=== PATIENT | female | born 1960 | race Caucasian/White ===

== ENCOUNTER 2018-03-16 16:40 | Inpatient (IN) | payer MEDICAID ==
[~2018-03-16] VITALS: Ht 167.6 cm; Wt 72.8 kg
[2018-03-16] MEDS ORDERED: FENTANYL CITRATE 100 MCG/2 ML AMPUL IV ONE ×2 (17:15→18:45)
[2018-03-16] MEDS ORDERED: ONDANSETRON IV *ER 4 MG/2 ML VIAL IV ONE (17:15)
[2018-03-16] MEDS ORDERED: LABETALOL HCL 100 MG/20 ML VIAL IV ONE ×3 (17:15→19:30)
[2018-03-16] MEDS ORDERED: IV NORMAL SALINE 500 ML BAG IV ONE (17:15)
[2018-03-16] MEDS ORDERED: ONDANSETRON 4 MG/2 ML VIAL ONE (17:30)
[2018-03-16] MEDS ORDERED: FENTANYL CITRATE 100 MCG/2 ML AMPUL ONE ×2 (17:30→18:53)
[2018-03-16] MEDS ORDERED: LABETALOL HCL 100 MG/20 ML VIAL ONE ×2 (17:30→18:15)
[2018-03-16 18:09] LABS: BASOPHILS % (AUTO) 0.1 % (0.0-2.0); HEMATOCRIT 36.9 % (31.2-41.9); HEMOGLOBIN 11.8 g/dL (10.9-14.3); LYMPHOCYTES # (AUTO) 2.9 K/uL (20.0-40.0); LYMPHOCYTES % (AUTO) 11.9 % (20.5-51.5); MEAN CORPUSCULAR HEMOGLOBIN 25.7 uug (24.7-32.8); MEAN CORPUSCULAR HGB CONC 32 g/dL (32.3-35.6); MEAN CORPUSCULAR VOLUME 80.6 fL (75.5-95.3); MONOCYTES # (AUTO) 1.2 K/uL (2.0-10.0); NEUTROPHILS # (AUTO) 20.1 K/uL (1.8-8.9); PLATELET COUNT (AUTO) 563 K/uL (179-408); RED BLOOD CELL COUNT(AUTO) 4.58 MIL/uL (3.63-4.92); WHITE BLOOD COUNT (AUTO) 24.2 K/uL (3.8-11.8)
[2018-03-16 18:11] LABS: CREATININE 1.2 mg/dL (0.6-1.3); POTASSIUM 3.2 mmol/L (3.5-5.1)
[2018-03-16] MEDS ORDERED: CELE100C PO (18:13)
[2018-03-16] MEDS ORDERED: CLON1TAB PO (18:13)
[2018-03-16] MEDS ORDERED: DIPH25CA83 PO (18:13)
[2018-03-16] MEDS ORDERED: DILT-32 PO (18:13)
[2018-03-16] MEDS ORDERED: METH25VI11 INJ (18:13)
[2018-03-16] MEDS ORDERED: PANT40TA2 PO (18:13)
[2018-03-16] MEDS ORDERED: CHOL10005 PO (18:13)
[2018-03-16] MEDS ORDERED: CHLO25TA2 PO (18:13)
[2018-03-16] MEDS ORDERED: POTA10TA15 PO (18:13)
[2018-03-16] MEDS ORDERED: DOXA4TAB3 PO (18:13)
[2018-03-16] MEDS ORDERED: TIZA4TAB4 PO (18:13)
[2018-03-16 18:24] LABS: BILIRUBIN,DIRECT 0.1 mg/dL (0.0-0.2); BILIRUBIN,TOTAL 0.3 mg/dL (0.2-1.0); TOTAL PROTEIN, SERUM 7.8 g/dL (6.4-8.2)
[2018-03-16] MEDS ORDERED: FUROSEMIDE 20 MG/2 ML VIAL IV ONE (18:30)
[2018-03-16] MEDS ORDERED: CEFTRIAXONE 2 G in IV DEXTROSE 5% 100 ML IV ONE (18:30)
[2018-03-16] MEDS ORDERED: CEFTRIAXONE 1 G VIAL ONE (18:40)
[2018-03-16] MEDS ORDERED: FUROSEMIDE 40 MG/4 ML VIAL ONE (18:40)
[2018-03-16] MEDS ORDERED: ACETAMINOPHEN 325 MG TABLET PO PRN (19:15)
[2018-03-16] MEDS ORDERED: MAGNESIUM HYDROXIDE 30 ML LIQUID UDC PO PRN (19:15)
[2018-03-16] MEDS ORDERED: Z GUARD REMEDY PASTE 57 GM TUBE TOP PRN (19:15)
[2018-03-16] MEDS ORDERED: FENTANYL CITRATE 100 MCG/2 ML AMPUL IV PRN (19:45)
[2018-03-16 20:50] VITALS: BP 157/84
[2018-03-16] MEDS: POTASSIUM CHLORIDE 50 ML IV SCH ×2 (21:41→22:53)
[2018-03-16] MEDS: IV NS 1000 ML 1,000 ML IV PRN (21:41)
[2018-03-16] MEDS ORDERED: METHOTREXATE SODIUM 25 MG INJ SCH (22:00)
[2018-03-16 22:06] LABS: *BILIRUBIN,URIN NEGATIVE (NEGATIVE); *BLOOD, URINE NEGATIVE (NEGATIVE); *CLARITY,URINE CLEAR (CLEAR); *COLOR,URINE LIGHT YELLOW (YELLOW); *KETONES,URINE NEGATIVE (NEGATIVE); *PROTEIN,URINE NEGATIVE (NEGATIVE); *UROBILINOGEN,URINE 0.2 E.U./dl (NORMAL); LEUKOCYTE ESTERASE ,URINE 2+ (NEGATIVE); NITRITE, URINE NEGATIVE (NEGATIVE); UGLUCOSE NEGATIVE (NEGATIVE)
[2018-03-16 22:13] LABS: MUCUS,URINE FEW /LPF (0-FEW); RBC,URINE 0-3 /HPF (0-3); SQUAMOUS EPITHELIAL CELL,UR MODERATE /HPF (NONE SEEN); TRANSITIONAL EPI CELLS,URINE FEW /LPF (NONE SEEN)
[2018-03-16] MEDS: diphenhydrAMINE 50 MG/1 ML VIAL IV PRN (22:21)
[2018-03-16 23:38] VITALS: BP 166/76
[2018-03-17] VITALS (11 sets, daily range): BP systolic 90–209; BP diastolic 44–93
[2018-03-17] MEDS: POTASSIUM CHLORIDE 50 ML IV SCH ×2 (00:37→01:53)
[2018-03-17] MEDS: FENTANYL CITRATE 100 MCG/2 ML AMPUL IV PRN ×3 (00:45→14:41)
[2018-03-17] MEDS ORDERED: NITROGLYCERIN 0.4 MG/TAB BOTTLE SL PRN (02:00)
[2018-03-17] MEDS ORDERED: hydrALAZINE HCL 50 MG TABLET PO SCH ×2 (04:30→14:00)
[2018-03-17] MEDS: diphenhydrAMINE 50 MG/1 ML VIAL IV PRN ×3 (04:40→20:55)
[2018-03-17] MEDS: LORAZEPAM 2 MG/1 ML VIAL IV PRN ×2 (05:59→22:15)
[2018-03-17 06:07] LABS: BASOPHILS % (AUTO) 0.1 % (0.0-2.0); EOSINOPHILS % (AUTO) 0.1 % (0.0-7.0); HEMATOCRIT 36.6 % (31.2-41.9); HEMOGLOBIN 11.6 g/dL (10.9-14.3); LYMPHOCYTES # (AUTO) 3.8 K/uL (20.0-40.0); LYMPHOCYTES % (AUTO) 21.1 % (20.5-51.5); MEAN CORPUSCULAR HEMOGLOBIN 25.7 uug (24.7-32.8); MEAN CORPUSCULAR HGB CONC 32 g/dL (32.3-35.6); MEAN CORPUSCULAR VOLUME 81.2 fL (75.5-95.3); MONOCYTES # (AUTO) 1.1 K/uL (2.0-10.0); MONOCYTES % (AUTO) 5.9 % (0.0-11.0); NEUTROPHILS # (AUTO) 13.1 K/uL (1.8-8.9); NEUTROPHILS % (AUTO) 72.8 % (38.5-71.5); PLATELET COUNT (AUTO) 509 K/uL (179-408); RED BLOOD CELL COUNT(AUTO) 4.51 MIL/uL (3.63-4.92); WHITE BLOOD COUNT (AUTO) 18.1 K/uL (3.8-11.8)
[2018-03-17 06:41] LABS: CREATININE 1.2 mg/dL (0.6-1.3); MAGNESIUM 2.3 mg/dL (1.8-2.4); PHOSPHOROUS 4.8 mg/dL (2.5-4.9); POTASSIUM 3.8 mmol/L (3.5-5.1)
[2018-03-17 07:48] LABS: THYROID STIMULATING HORMONE 1.005 mIU/mL (0.358-3.740)
[2018-03-17] MEDS: PANTOPRAZOLE SODIUM 40 MG VIAL IV SCH (08:39)
[2018-03-17] MEDS: CELECOXIB 100 MG CAPSULE PO SCH ×2 (08:52→17:03)
[2018-03-17] MEDS: DOXAZOSIN 2 MG TABLET PO SCH ×2 (08:52→21:00)
[2018-03-17] MEDS: TIZANIDINE HCL 4 MG TABLET PO SCH ×3 (08:55→17:04)
[2018-03-17] MEDS ORDERED: LABETALOL HCL 100 MG TABLET PO SCH (09:00)
[2018-03-17] MEDS ORDERED: CHLORTHALIDONE 25 MG TABLET PO SCH (09:00)
[2018-03-17] MEDS ORDERED: VERAPAMIL 80 MG TABLET PO SCH (09:00)
[2018-03-17] MEDS ORDERED: DILTIAZEM HCL CD 120 MG CAP.SR.24H PO SCH (09:00)
[2018-03-17] MEDS: hydrALAZINE HCL 25 MG TABLET PO SCH ×2 (13:23→21:53)
[2018-03-17] MEDS: CEFTRIAXONE 1 G in IV DEXTROSE 5% 50 ML IV SCH (16:53)
[2018-03-17] MEDS: IV NS 1000 ML 1,000 ML IV PRN (21:58)
[2018-03-18] VITALS (7 sets, daily range): BP systolic 113–151; BP diastolic 50–151
[2018-03-18] MEDS: FENTANYL CITRATE 100 MCG/2 ML AMPUL IV PRN ×4 (01:29→21:02)
[2018-03-18] MEDS: diphenhydrAMINE 50 MG/1 ML VIAL IV PRN ×3 (03:46→22:21)
[2018-03-18] MEDS: LORAZEPAM 2 MG/1 ML VIAL IV PRN (05:49)
[2018-03-18] MEDS: hydrALAZINE HCL 25 MG TABLET PO SCH (06:14)
[2018-03-18] MEDS: ONDANSETRON 4 MG/2 ML VIAL IV PRN ×2 (07:01→21:02)
[2018-03-18 07:09] LABS: BASOPHILS % (AUTO) 0.3 % (0.0-2.0); EOSINOPHILS # (AUTO) 0.2 K/uL (0.0-0.7); EOSINOPHILS % (AUTO) 2.2 % (0.0-7.0); HEMOGLOBIN 10.7 g/dL (10.9-14.3); LYMPHOCYTES # (AUTO) 4.1 K/uL (20.0-40.0); LYMPHOCYTES % (AUTO) 35.9 % (20.5-51.5); MEAN CORPUSCULAR HEMOGLOBIN 26.4 uug (24.7-32.8); MEAN CORPUSCULAR HGB CONC 32 g/dL (32.3-35.6); MEAN CORPUSCULAR VOLUME 81.4 fL (75.5-95.3); MONOCYTES # (AUTO) 0.9 K/uL (2.0-10.0); MONOCYTES % (AUTO) 7.6 % (0.0-11.0); NEUTROPHILS # (AUTO) 6.2 K/uL (1.8-8.9); PLATELET COUNT (AUTO) 433 K/uL (179-408); RED BLOOD CELL COUNT(AUTO) 4.05 MIL/uL (3.63-4.92)
[2018-03-18 07:19] LABS: WHITE BLOOD COUNT (AUTO) 11.4 K/uL (3.8-11.8)
[2018-03-18 07:24] LABS: CREATININE 1.1 mg/dL (0.6-1.3); POTASSIUM 4.2 mmol/L (3.5-5.1)
[2018-03-18] MEDS: DOXAZOSIN 2 MG TABLET PO SCH ×2 (07:47→21:01)
[2018-03-18] MEDS: PANTOPRAZOLE SODIUM 40 MG VIAL IV SCH (08:02)
[2018-03-18] MEDS: TIZANIDINE HCL 4 MG TABLET PO SCH ×3 (08:03→17:09)
[2018-03-18] MEDS: CELECOXIB 100 MG CAPSULE PO SCH ×2 (08:03→17:09)
[2018-03-18] MEDS: IV NS 1000 ML 1,000 ML IV PRN (11:51)
[2018-03-18] MEDS ORDERED: hydrALAZINE HCL 25 MG TABLET PO SCH (14:00)
[2018-03-18] MEDS: CEFTRIAXONE 1 G in IV DEXTROSE 5% 50 ML IV SCH (17:10)
[2018-03-19] VITALS: BP 121/50
[2018-03-19] MEDS: LORAZEPAM 2 MG/1 ML VIAL IV PRN ×3 (00:56→15:20)
[2018-03-19] MEDS: IV NS 1000 ML 1,000 ML IV PRN ×2 (01:55→17:15)
[2018-03-19] MEDS: FENTANYL CITRATE 100 MCG/2 ML AMPUL IV PRN ×2 (03:21→09:45)
[2018-03-19 05:00] VITALS: BP 162/81
[2018-03-19] MEDS: hydrALAZINE HCL 25 MG TABLET PO PRN ×2 (05:25→14:17)
[2018-03-19] MEDS: diphenhydrAMINE 50 MG/1 ML VIAL IV PRN ×3 (05:25→20:04)
[2018-03-19] MEDS: PANTOPRAZOLE SODIUM 40 MG TABLET.DR PO SCH (06:16)
[2018-03-19] MEDS: DOXAZOSIN 2 MG TABLET PO SCH ×2 (08:23→20:01)
[2018-03-19] MEDS: TIZANIDINE HCL 4 MG TABLET PO SCH ×3 (08:23→17:14)
[2018-03-19] MEDS: CELECOXIB 100 MG CAPSULE PO SCH ×2 (08:24→17:14)
[2018-03-19 09:39] VITALS: BP 140/71
[2018-03-19 12:39] VITALS: BP 158/77
[2018-03-19] MEDS: HYDROMORPHONE 2 MG/1 ML DISP.SYRIN IV PRN ×2 (15:21→19:58)
[2018-03-19 15:56] VITALS: BP 124/68
[2018-03-19] MEDS: CEFTRIAXONE 1 G in IV DEXTROSE 5% 50 ML IV SCH (17:14)
[2018-03-19 20:02] VITALS: BP 166/81
[2018-03-20] VITALS (7 sets, daily range): BP systolic 104–168; BP diastolic 49–81
[2018-03-20] MEDS: HYDROMORPHONE 2 MG/1 ML DISP.SYRIN IV PRN ×3 (01:04→11:30)
[2018-03-20] MEDS: diphenhydrAMINE 50 MG/1 ML VIAL IV PRN ×3 (02:03→14:42)
[2018-03-20] MEDS: hydrALAZINE HCL 25 MG TABLET PO PRN ×2 (04:52→14:42)
[2018-03-20] MEDS: IV NS 1000 ML 1,000 ML IV PRN (06:13)
[2018-03-20] MEDS: PANTOPRAZOLE SODIUM 40 MG TABLET.DR PO SCH (06:14)
[2018-03-20] MEDS: DOXAZOSIN 2 MG TABLET PO SCH (06:50)
[2018-03-20] MEDS: CELECOXIB 100 MG CAPSULE PO SCH ×2 (08:12→16:39)
[2018-03-20] MEDS: TIZANIDINE HCL 4 MG TABLET PO SCH ×3 (08:12→16:39)
[2018-03-20] MEDS: LORAZEPAM 2 MG/1 ML VIAL IV PRN (09:18)
[2018-03-20] MEDS ORDERED: CEPH-570 PO (15:45)
== END 2018-03-20 17:45 | disposition home or self-care (01) | DRG 199 ==
LOC: ER 16:50 → UNDOADMIN 20:21 → TELE 20:21 → TELE-TD 03-17 09:18 → CCU 03-17 10:04 → TELE-TD 03-18 07:24 → TELE 03-19 16:40
PROVIDERS: ADMIT Hospitalist; ATTEND Hospitalist
DX: I16.0 Hypertensive urgency (principal); I21.A1 Myocardial infarction type 2; I50.33 Acute on chronic diastolic (congestive) heart failure; I11.0 Hypertensive heart disease with heart failure; G43.909 Migraine, unspecified, not intractable, without status migrainosus; N39.0 Urinary tract infection, site not specified; E87.6 Hypokalemia; E78.5 Hyperlipidemia, unspecified; Z82.49 Family history of ischemic heart disease and other diseases of the circulatory system; Z87.440 Personal history of urinary (tract) infections; D49.7 Neoplasm of unspecified behavior of endocrine glands and other parts of nervous system; E87.1 Hypo-osmolality and hyponatremia
CPT/HCPCS: 36415; 70030-TC; 70551; 71045; 83735; 84100; 84443; 85025; 85730; 87040; 87086; 93005; 93307; 93880; C9113; J0696; J1170; J1200; J1940; J2060; J2405; J3010; J3480; J3490; J7030; J7060

== ENCOUNTER 2018-11-26 19:32 | Inpatient (IN) | payer MEDICAID ==
[~2018-11-26] VITALS: Ht 170.2 cm; Wt 84.8 kg
[~2018-11-26 19:32] MED LIST: CELE100C PO; CEPH-570 PO; CHLO25TA2 PO; CHOL10005 PO; CLON1TAB PO; DILT-32 PO; DOXA4TAB3 PO; METH25VI11 INJ; PANT40TA2 PO; POTA10TA15 PO; TIZA4TAB4 PO
[2018-11-26] MEDS ORDERED: ONDANSETRON IV *ER 4 MG/2 ML VIAL IV ONE (19:45)
[2018-11-26] MEDS ORDERED: MORPHINE SULFATE 4 MG/1 ML DISP.SYRIN IV ONE ×2 (19:45→22:15)
[2018-11-26] MEDS ORDERED: NITROGLYCERIN OINT 1 GM PACKET TP ONE ×2 (19:45→19:53)
[2018-11-26] MEDS ORDERED: NITROGLYCERIN 0.4 MG/TAB BOTTLE SL ONE ×2 (19:45→19:53)
[2018-11-26] MEDS ORDERED: ASPIRIN 81 MG TAB.CHEW PO ONE (19:45)
[2018-11-26] MEDS ORDERED: ASPIRIN 81 MG TAB.CHEW ONE (19:52)
[2018-11-26] MEDS ORDERED: ONDANSETRON 4 MG/2 ML VIAL ONE (19:53)
[2018-11-26] MEDS ORDERED: MORPHINE SULFATE 4 MG/1 ML DISP.SYRIN ONE ×2 (19:53→22:17)
[2018-11-26 20:01] LABS: BASOPHILS # (AUTO) 0.1 K/uL (0.0-8.0); BASOPHILS % (AUTO) 0.8 % (0.0-2.0); EOSINOPHILS # (AUTO) 0.2 K/uL (0.0-0.7); EOSINOPHILS % (AUTO) 2.2 % (0.0-7.0); HEMATOCRIT 34.5 % (31.2-41.9); HEMOGLOBIN 10.7 g/dL (10.9-14.3); LYMPHOCYTES % (AUTO) 34.7 % (20.5-51.5); MEAN CORPUSCULAR HEMOGLOBIN 23.4 uug (24.7-32.8); MEAN CORPUSCULAR HGB CONC 31 g/dL (32.3-35.6); MEAN CORPUSCULAR VOLUME 75.3 fL (75.5-95.3); MONOCYTES # (AUTO) 0.6 K/uL (2.0-10.0); NEUTROPHILS # (AUTO) 4.8 K/uL (1.8-8.9); NEUTROPHILS % (AUTO) 55.3 % (38.5-71.5); PLATELET COUNT (AUTO) 403 K/uL (179-408); RED BLOOD CELL COUNT(AUTO) 4.58 MIL/uL (3.63-4.92); WHITE BLOOD COUNT (AUTO) 8.6 K/uL (3.8-11.8)
[2018-11-26] MEDS ORDERED: HYDR50CA PO (20:02)
[2018-11-26] MEDS ORDERED: metoprolol PO (20:02)
[2018-11-26] MEDS ORDERED: AMIT50TA3 PO (20:02)
[2018-11-26 20:11] LABS: POTASSIUM 3.8 mmol/L (3.5-5.1)
[2018-11-26 20:23] LABS: BILIRUBIN,DIRECT 0.1 mg/dL (0.0-0.2); BILIRUBIN,TOTAL 0.3 mg/dL (0.2-1.0); TOTAL PROTEIN, SERUM 8.5 g/dL (6.4-8.2)
[2018-11-26] MEDS ORDERED: LABETALOL HCL 100 MG/20 ML VIAL ONE (20:41)
[2018-11-26] MEDS ORDERED: LABETALOL HCL 100 MG/20 ML VIAL IV ONE (20:45)
[2018-11-26] MEDS ORDERED: IV NORMAL SALINE 500 ML BAG IV ONE (20:45)
[2018-11-26 22:50] VITALS: BP 159/88
[2018-11-26] MEDS ORDERED: Z GUARD REMEDY PASTE 57 GM TUBE TOP PRN (23:30)
[2018-11-26] MEDS ORDERED: ACETAMINOPHEN 325 MG TABLET PO PRN (23:30)
[2018-11-26] MEDS ORDERED: MAGNESIUM HYDROXIDE 30 ML LIQUID UDC PO PRN (23:30)
[2018-11-26] MEDS ORDERED: HYDROXYZINE PAMOATE 25 MG CAPSULE PO PRN (23:30)
[2018-11-26] MEDS ORDERED: NITROGLYCERIN 0.4 MG/TAB BOTTLE SL PRN (23:30)
[2018-11-26] MEDS ORDERED: TIZANIDINE HCL 4 MG TABLET PO PRN (23:30)
[2018-11-26] MEDS ORDERED: HYDROCODONE/APAP 5-325MG TABLET PO PRN (23:30)
[2018-11-26] MEDS ORDERED: ONDANSETRON 4 MG/2 ML VIAL IV PRN (23:30)
[2018-11-26] MEDS ORDERED: CLONAZEPAM 1 MG TABLET PO PRN (23:30)
[2018-11-26] MEDS: METOPROLOL TARTRATE 25 MG TABLET PO SCH (23:50)
[2018-11-26] MEDS: MORPHINE SULFATE 2 MG/1 ML DISP.SYRIN IV PRN (23:59)
[2018-11-27] VITALS: BP 159/88
[2018-11-27 04:00] VITALS: BP 111/64
[2018-11-27 05:11] LABS: BASOPHILS # (AUTO) 0.1 K/uL (0.0-8.0); BASOPHILS % (AUTO) 0.7 % (0.0-2.0); EOSINOPHILS # (AUTO) 0.2 K/uL (0.0-0.7); EOSINOPHILS % (AUTO) 2.1 % (0.0-7.0); HEMATOCRIT 30.1 % (31.2-41.9); HEMOGLOBIN 9.5 g/dL (10.9-14.3); LYMPHOCYTES # (AUTO) 3.1 K/uL (20.0-40.0); MEAN CORPUSCULAR HEMOGLOBIN 23.8 uug (24.7-32.8); MEAN CORPUSCULAR HGB CONC 32 g/dL (32.3-35.6); MEAN CORPUSCULAR VOLUME 75.6 fL (75.5-95.3); MONOCYTES # (AUTO) 0.5 K/uL (2.0-10.0); MONOCYTES % (AUTO) 5.6 % (0.0-11.0); NEUTROPHILS # (AUTO) 4.6 K/uL (1.8-8.9); NEUTROPHILS % (AUTO) 54.6 % (38.5-71.5); PLATELET COUNT (AUTO) 395 K/uL (179-408); RED BLOOD CELL COUNT(AUTO) 3.99 MIL/uL (3.63-4.92); WHITE BLOOD COUNT (AUTO) 8.5 K/uL (3.8-11.8)
[2018-11-27 05:45] LABS: CREATININE 1.1 mg/dL (0.6-1.3); MAGNESIUM 2.2 mg/dL (1.8-2.4); PHOSPHOROUS 4.9 mg/dL (2.5-4.9); POTASSIUM 3.5 mmol/L (3.5-5.1)
[2018-11-27] MEDS: MORPHINE SULFATE 2 MG/1 ML DISP.SYRIN IV PRN ×4 (06:18→20:56)
[2018-11-27] MEDS: AMITRIPTYLINE HCL 50 MG TABLET PO SCH ×2 (08:30→16:48)
[2018-11-27] MEDS: ASPIRIN 81 MG TAB.CHEW PO SCH (08:30)
[2018-11-27] MEDS: METOPROLOL TARTRATE 25 MG TABLET PO SCH ×2 (08:34→20:54)
[2018-11-27 11:28] VITALS: BP 119/64
[2018-11-27 15:21] VITALS: BP 138/61
[2018-11-27 20:00] VITALS: BP 155/77
[2018-11-27] MEDS ORDERED: ATORVASTATIN 20 MG TABLET PO SCH (21:00)
[2018-11-28] MEDS: MORPHINE SULFATE 2 MG/1 ML DISP.SYRIN IV PRN ×2 (01:50→05:28)
[2018-11-28 05:27] VITALS: BP 107/51
[2018-11-28 05:58] LABS: BASOPHILS # (AUTO) 0.1 K/uL (0.0-8.0); BASOPHILS % (AUTO) 0.8 % (0.0-2.0); EOSINOPHILS # (AUTO) 0.3 K/uL (0.0-0.7); EOSINOPHILS % (AUTO) 3.4 % (0.0-7.0); HEMATOCRIT 32.2 % (31.2-41.9); HEMOGLOBIN 10.3 g/dL (10.9-14.3); LYMPHOCYTES # (AUTO) 3.6 K/uL (20.0-40.0); LYMPHOCYTES % (AUTO) 43.4 % (20.5-51.5); MEAN CORPUSCULAR HEMOGLOBIN 24.5 uug (24.7-32.8); MEAN CORPUSCULAR HGB CONC 32 g/dL (32.3-35.6); MEAN CORPUSCULAR VOLUME 76.5 fL (75.5-95.3); MONOCYTES # (AUTO) 0.5 K/uL (2.0-10.0); NEUTROPHILS # (AUTO) 3.9 K/uL (1.8-8.9); NEUTROPHILS % (AUTO) 46.4 % (38.5-71.5); PLATELET COUNT (AUTO) 425 K/uL (179-408); RED BLOOD CELL COUNT(AUTO) 4.21 MIL/uL (3.63-4.92); WHITE BLOOD COUNT (AUTO) 8.3 K/uL (3.8-11.8)
[2018-11-28 06:03] LABS: BILIRUBIN,TOTAL 0.3 mg/dL (0.2-1.0); CREATININE 1.1 mg/dL (0.6-1.3); MAGNESIUM 2.3 mg/dL (1.8-2.4); PHOSPHOROUS 4.6 mg/dL (2.5-4.9); POTASSIUM 3.9 mmol/L (3.5-5.1); TOTAL PROTEIN, SERUM 7.9 g/dL (6.4-8.2)
[2018-11-28 08:50] VITALS: BP 133/70
[2018-11-28] MEDS: AMITRIPTYLINE HCL 50 MG TABLET PO SCH (08:51)
[2018-11-28] MEDS: METOPROLOL TARTRATE 25 MG TABLET PO SCH (08:52)
[2018-11-28] MEDS: ASPIRIN 81 MG TAB.CHEW PO SCH (08:52)
[2018-11-28 09:32] LABS: THYROID STIMULATING HORMONE 1.188 mIU/mL (0.358-3.740)
[2018-11-28 11:03] VITALS: BP 108/39
[2018-11-28] MEDS ORDERED: ATOR20TA PO (11:27)
[2018-11-28] MEDS ORDERED: ASPI81TA31 PO (11:27)
[2018-11-28] MEDS ORDERED: FAMO-132 PO (12:09)
[2018-11-28 12:19] LABS: IRON, SERUM 33 ug/dL (50-175)
[2018-11-28 13:44] VITALS: BP 109/56
== END 2018-11-28 13:50 | disposition home or self-care (01) | DRG 203 ==
LOC: ER 19:32 → TELE3 22:38 → MEDSURG3 11-27 13:50
PROVIDERS: ADMIT Internal Medicine; ATTEND Internal Medicine
DX: M94.0 Chondrocostal junction syndrome [Tietze] (principal); L40.50 Arthropathic psoriasis, unspecified; D50.9 Iron deficiency anemia, unspecified; E66.9 Obesity, unspecified; I10 Essential (primary) hypertension; Z82.49 Family history of ischemic heart disease and other diseases of the circulatory system; E78.5 Hyperlipidemia, unspecified; F41.9 Anxiety disorder, unspecified; I25.2 Old myocardial infarction; F32.9 Major depressive disorder, single episode, unspecified; E26.9 Hyperaldosteronism, unspecified; G43.909 Migraine, unspecified, not intractable, without status migrainosus; Z68.29 Body mass index [BMI] 29.0-29.9, adult; I20.0 Unstable angina; M45.9 Ankylosing spondylitis of unspecified sites in spine
CPT/HCPCS: 36415; 70030-TC; 71045; 83550; 83735; 84100; 84443; 85025; 85730; 93005; 93307; A4663; G0378; J2270; J2405; J3490; J7040

== ENCOUNTER 2018-12-02 22:25 | Inpatient (IN) | payer MEDICAID ==
[~2018-12-02] VITALS: Ht 170.2 cm; Wt 85.3 kg
[~2018-12-02 22:25] MED LIST changes: +AMIT50TA3 PO; +ASPI81TA31 PO; +ATOR20TA PO; -CELE100C PO; -CEPH-570 PO; -CHLO25TA2 PO; -CHOL10005 PO; -DILT-32 PO; -DOXA4TAB3 PO; +FAMO-132 PO; +HYDR50CA PO; -METH25VI11 INJ; -PANT40TA2 PO; -POTA10TA15 PO; +metoprolol PO
[2018-12-02] MEDS ORDERED: DILTIAZEM HCL 25 MG IV IV ONE (22:45)
[2018-12-02] MEDS ORDERED: IV NORMAL SALINE 500 ML BAG IV ONE (22:45)
[2018-12-02] MEDS ORDERED: DILTIAZEM HCL 25 MG IV ONE ×2 (22:53→23:21)
[2018-12-02 23:03] LABS: BASOPHILS # (AUTO) 0.1 K/uL (0.0-8.0); BASOPHILS % (AUTO) 0.7 % (0.0-2.0); EOSINOPHILS # (AUTO) 0.2 K/uL (0.0-0.7); EOSINOPHILS % (AUTO) 1.6 % (0.0-7.0); LYMPHOCYTES # (AUTO) 3.3 K/uL (20.0-40.0); MEAN CORPUSCULAR HEMOGLOBIN 23.8 uug (24.7-32.8); MEAN CORPUSCULAR HGB CONC 32 g/dL (32.3-35.6); MEAN CORPUSCULAR VOLUME 75.4 fL (75.5-95.3); MONOCYTES # (AUTO) 0.7 K/uL (2.0-10.0); MONOCYTES % (AUTO) 7.1 % (0.0-11.0); NEUTROPHILS % (AUTO) 54.6 % (38.5-71.5); PLATELET COUNT (AUTO) 416 K/uL (179-408); RED BLOOD CELL COUNT(AUTO) 4.64 MIL/uL (3.63-4.92); WHITE BLOOD COUNT (AUTO) 9.2 K/uL (3.8-11.8)
[2018-12-02 23:11] LABS: CREATININE 1.2 mg/dL (0.6-1.3); POTASSIUM 3.8 mmol/L (3.5-5.1)
[2018-12-02] MEDS ORDERED: MORPHINE SULFATE 2 MG/1 ML DISP.SYRIN ONE (23:14)
[2018-12-02] MEDS ORDERED: DILTIAZEM HCL IV 125 MG in IV DEXTROSE 5% 100 ML IV ONE (23:15)
[2018-12-02] MEDS ORDERED: MORPHINE SULFATE 2 MG/1 ML DISP.SYRIN IV ONE (23:15)
[2018-12-02] MEDS ORDERED: DILTIAZEM HCL 50 MG IV ONE (23:21)
[2018-12-02 23:23] LABS: BILIRUBIN,DIRECT 0.1 mg/dL (0.0-0.2); BILIRUBIN,TOTAL 0.3 mg/dL (0.2-1.0); TOTAL PROTEIN, SERUM 8.7 g/dL (6.4-8.2)
[2018-12-02] MEDS ORDERED: ONDANSETRON 4 MG/2 ML VIAL ONE (23:28)
[2018-12-02] MEDS ORDERED: ONDANSETRON IV *ER 4 MG/2 ML VIAL IV ONE (23:30)
[2018-12-03] VITALS (21 sets, daily range): BP systolic 121–175; BP diastolic 60–101
[2018-12-03] MEDS ORDERED: AMIODARONE HCL 150 MG/3 ML VIAL IV ONE ×2 (00:11→00:23)
[2018-12-03] MEDS ORDERED: AMIODARONE HCL IV 150 MG in IV DEXTROSE 5% 100 ML IV ONE (00:15)
[2018-12-03] MEDS ORDERED: AMIODARONE HCL IV 900 MG in IV DEXTROSE 5% 482 ML IV PRN ×2 (00:15→01:15)
[2018-12-03] MEDS ORDERED: MORPHINE SULFATE 2 MG/1 ML DISP.SYRIN ONE (00:22)
[2018-12-03] MEDS ORDERED: MORPHINE SULFATE 2 MG/1 ML DISP.SYRIN IV ONE (00:30)
[2018-12-03] MEDS ORDERED: CLONAZEPAM 1 MG TABLET PO PRN (01:00)
[2018-12-03] MEDS ORDERED: ONDANSETRON 4 MG/2 ML VIAL IV PRN (01:15)
[2018-12-03] MEDS ORDERED: ACETAMINOPHEN 325 MG TABLET PO PRN (01:15)
[2018-12-03] MEDS ORDERED: Z GUARD REMEDY PASTE 57 GM TUBE TOP PRN (01:15)
[2018-12-03] MEDS ORDERED: HYDROCODONE/APAP 5-325MG TABLET PO PRN (01:15)
[2018-12-03] MEDS ORDERED: MAGNESIUM HYDROXIDE 30 ML LIQUID UDC PO PRN (01:15)
[2018-12-03] MEDS: MORPHINE SULFATE 2 MG/1 ML DISP.SYRIN IV PRN ×5 (01:44→20:34)
[2018-12-03] MEDS: IV 1/2NS 1000 ML 1,000 ML IV PRN ×2 (01:56→14:28)
[2018-12-03] MEDS: ZOLPIDEM 5 MG TABLET PO PRN (02:12)
[2018-12-03] MEDS: FAMOTIDINE 20 MG TABLET PO SCH (08:40)
[2018-12-03] MEDS: ASPIRIN 81 MG TAB.CHEW PO SCH (08:53)
[2018-12-03] MEDS: AMITRIPTYLINE HCL 50 MG TABLET PO SCH ×2 (08:54→17:18)
[2018-12-03] MEDS: hydrALAZINE HCL 20 MG/1 ML VIAL IV PRN (08:58)
[2018-12-03] MEDS ORDERED: METOPROLOL TARTRATE 50 MG TABLET PO ONE (09:00)
[2018-12-03] MEDS: TIZANIDINE HCL 4 MG TABLET PO PRN (09:03)
[2018-12-03] MEDS ORDERED: ONDANSETRON 4 MG/2 ML VIAL IV ONE (09:45)
[2018-12-03] MEDS ORDERED: NORMAL SALINE FLUSH 10 ML DISP.SYRIN IV PRN (13:00)
[2018-12-03] MEDS: NORMAL SALINE FLUSH 10 ML DISP.SYRIN IV SCH ×2 (14:20→21:51)
[2018-12-03] MEDS ORDERED: PROMETHAZINE HCL INJ 12.5 MG in IV DEXTROSE 5% 50 ML IV PRN (15:00)
[2018-12-03] MEDS: METOPROLOL TARTRATE 50 MG TABLET PO SCH (20:33)
[2018-12-03] MEDS ORDERED: HYDROXYZINE PAMOATE 50 MG PO SCH (21:00)
[2018-12-03] MEDS ORDERED: HYDROXYZINE PAMOATE 25 MG CAPSULE PO SCH (21:00)
[2018-12-04] VITALS (10 sets, daily range): BP systolic 126–178; BP diastolic 51–86
[2018-12-04] MEDS: MORPHINE SULFATE 2 MG/1 ML DISP.SYRIN IV PRN ×3 (00:58→13:38)
[2018-12-04] MEDS: hydrALAZINE HCL 20 MG/1 ML VIAL IV PRN (01:14)
[2018-12-04] MEDS: ZOLPIDEM 5 MG TABLET PO PRN (01:17)
[2018-12-04] MEDS: IV 1/2NS 1000 ML 1,000 ML IV PRN ×2 (02:58→15:23)
[2018-12-04 05:22] LABS: BASOPHILS # (AUTO) 0.1 K/uL (0.0-8.0); BASOPHILS % (AUTO) 0.6 % (0.0-2.0); EOSINOPHILS # (AUTO) 0.3 K/uL (0.0-0.7); EOSINOPHILS % (AUTO) 2.7 % (0.0-7.0); HEMATOCRIT 33.2 % (31.2-41.9); HEMOGLOBIN 10.5 g/dL (10.9-14.3); LYMPHOCYTES # (AUTO) 4.1 K/uL (20.0-40.0); LYMPHOCYTES % (AUTO) 35.7 % (20.5-51.5); MEAN CORPUSCULAR HEMOGLOBIN 23.9 uug (24.7-32.8); MEAN CORPUSCULAR HGB CONC 32 g/dL (32.3-35.6); MEAN CORPUSCULAR VOLUME 75.4 fL (75.5-95.3); MONOCYTES # (AUTO) 0.8 K/uL (2.0-10.0); MONOCYTES % (AUTO) 6.9 % (0.0-11.0); NEUTROPHILS # (AUTO) 6.3 K/uL (1.8-8.9); NEUTROPHILS % (AUTO) 54.1 % (38.5-71.5); PLATELET COUNT (AUTO) 497 K/uL (179-408); WHITE BLOOD COUNT (AUTO) 11.6 K/uL (3.8-11.8)
[2018-12-04 05:33] LABS: BILIRUBIN,TOTAL 0.3 mg/dL (0.2-1.0); CREATININE 1.1 mg/dL (0.6-1.3); MAGNESIUM 2.3 mg/dL (1.8-2.4); PHOSPHOROUS 4.2 mg/dL (2.5-4.9); POTASSIUM 3.9 mmol/L (3.5-5.1); TOTAL PROTEIN, SERUM 8.1 g/dL (6.4-8.2)
[2018-12-04 05:57] LABS: THYROID STIMULATING HORMONE 2.445 mIU/mL (0.358-3.740)
[2018-12-04] MEDS: NORMAL SALINE FLUSH 10 ML DISP.SYRIN IV SCH ×2 (06:09→13:38)
[2018-12-04] MEDS ORDERED: ZOLPIDEM 5 MG TABLET PO PRN (07:30)
[2018-12-04] MEDS: AMITRIPTYLINE HCL 50 MG TABLET PO SCH ×2 (08:25→17:27)
[2018-12-04] MEDS: ASPIRIN 81 MG TAB.CHEW PO SCH (08:26)
[2018-12-04] MEDS: FAMOTIDINE 20 MG TABLET PO SCH (08:26)
[2018-12-04] MEDS: METOPROLOL TARTRATE 50 MG TABLET PO SCH (08:27)
[2018-12-04] MEDS: TIZANIDINE HCL 4 MG TABLET PO PRN (13:37)
[2018-12-04] MEDS ORDERED: METO50TA16 PO (16:51)
== END 2018-12-04 17:50 | disposition home or self-care (01) | DRG 201 ==
LOC: ER 22:27 → CCU 12-03 01:01 → MEDSURG3 12-04 06:47 → TELE3 12-04 07:02 → MEDSURG3 12-04 16:40
PROVIDERS: ADMIT Internal Medicine; ATTEND Internal Medicine
PROC: 02HV33Z Insertion of Infusion Device into Superior Vena Cava, Percutaneous Approach (ICD-10-PCS; principal; 2018-12-03)
PROC: 3E053RZ Introduction of Antiarrhythmic into Peripheral Artery, Percutaneous Approach (ICD-10-PCS; principal; 2018-12-03)
DX: I47.1 Supraventricular tachycardia (principal); D89.89 Other specified disorders involving the immune mechanism, not elsewhere classified; L40.50 Arthropathic psoriasis, unspecified; M45.9 Ankylosing spondylitis of unspecified sites in spine; E66.9 Obesity, unspecified; Z68.29 Body mass index [BMI] 29.0-29.9, adult; I44.7 Left bundle-branch block, unspecified; I10 Essential (primary) hypertension; F32.9 Major depressive disorder, single episode, unspecified; E78.5 Hyperlipidemia, unspecified; F41.9 Anxiety disorder, unspecified; Z79.82 Long term (current) use of aspirin; Z79.899 Other long term (current) drug therapy; Z88.8 Allergy status to other drugs, medicaments and biological substances; Z88.1 Allergy status to other antibiotic agents; E26.9 Hyperaldosteronism, unspecified; D47.3 Essential (hemorrhagic) thrombocythemia; I25.2 Old myocardial infarction; M19.90 Unspecified osteoarthritis, unspecified site; G43.909 Migraine, unspecified, not intractable, without status migrainosus; D64.9 Anemia, unspecified
CPT/HCPCS: 36415; 70030-TC; 71045; 83735; 84100; 84443; 85025; 85730; 93005; A4663; G0378; J0282; J0360; J2270; J2405; J3490; J7040; J7060

== ENCOUNTER 2018-12-26 18:47 | Inpatient (IN) | payer MEDICAID ==
[~2018-12-26] VITALS: Ht 170.2 cm; Wt 87.6 kg
[~2018-12-26 18:47] MED LIST changes: -ATOR20TA PO; +METO50TA16 PO; -metoprolol PO
[2018-12-26] MEDS ORDERED: ADENOSINE 6 MG/2 ML SYR IV ONE ×4 (19:11→19:16)
[2018-12-26] MEDS ORDERED: ONDANSETRON 4 MG/2 ML VIAL IV ONE ×2 (19:15→22:30)
[2018-12-26] MEDS ORDERED: IV NORMAL SALINE 1000 ML BAG IV ONE (19:15)
[2018-12-26] MEDS ORDERED: MORPHINE SULFATE 2 MG/1 ML DISP.SYRIN IV ONE (19:15)
[2018-12-26] MEDS ORDERED: MORPHINE SULFATE 4 MG/1 ML DISP.SYRIN ONE ×3 (19:15→22:25)
[2018-12-26] MEDS ORDERED: ONDANSETRON 4 MG/2 ML VIAL ONE ×2 (19:16→22:25)
[2018-12-26] MEDS ORDERED: DILTIAZEM HCL 25 MG IV ONE ×3 (19:22→20:53)
[2018-12-26] MEDS ORDERED: DILTIAZEM HCL 25 MG IV IV ONE ×2 (19:30→19:45)
[2018-12-26 19:36] LABS: BASOPHILS # (AUTO) 0.1 K/uL (0.0-8.0); BASOPHILS % (AUTO) 0.8 % (0.0-2.0); EOSINOPHILS # (AUTO) 0.2 K/uL (0.0-0.7); EOSINOPHILS % (AUTO) 1.9 % (0.0-7.0); HEMATOCRIT 33.6 % (31.2-41.9); HEMOGLOBIN 10.6 g/dL (10.9-14.3); LYMPHOCYTES # (AUTO) 2.5 K/uL (20.0-40.0); LYMPHOCYTES % (AUTO) 29.4 % (20.5-51.5); MEAN CORPUSCULAR HEMOGLOBIN 23.3 uug (24.7-32.8); MEAN CORPUSCULAR HGB CONC 32 g/dL (32.3-35.6); MEAN CORPUSCULAR VOLUME 73.4 fL (75.5-95.3); MONOCYTES # (AUTO) 0.9 K/uL (2.0-10.0); MONOCYTES % (AUTO) 11.2 % (0.0-11.0); NEUTROPHILS # (AUTO) 4.8 K/uL (1.8-8.9); NEUTROPHILS % (AUTO) 56.7 % (38.5-71.5); PLATELET COUNT (AUTO) 415 K/uL (179-408); RED BLOOD CELL COUNT(AUTO) 4.58 MIL/uL (3.63-4.92); WHITE BLOOD COUNT (AUTO) 8.4 K/uL (3.8-11.8)
[2018-12-26 19:46] LABS: POTASSIUM 3.5 mmol/L (3.5-5.1)
[2018-12-26 20:00] LABS: BILIRUBIN,DIRECT 0.1 mg/dL (0.0-0.2); BILIRUBIN,TOTAL 0.2 mg/dL (0.2-1.0)
[2018-12-26] MEDS ORDERED: MORPHINE SULFATE 4 MG/1 ML DISP.SYRIN IV ONE ×2 (20:00→22:30)
[2018-12-26] MEDS ORDERED: NITROGLYCERIN 0.4 MG/TAB BOTTLE SL ONE ×2 (20:30→20:34)
[2018-12-26] MEDS ORDERED: ASPIRIN 81 MG TAB.CHEW PO ONE ×2 (20:30)
[2018-12-26] MEDS ORDERED: ASPIRIN 81 MG TAB.CHEW ONE (20:34)
[2018-12-26] MEDS ORDERED: DILTIAZEM HCL 50 MG IV ONE (20:53)
[2018-12-26] MEDS: DILTIAZEM HCL IV 125 MG in IV DEXTROSE 5% 100 ML IV PRN (21:21)
--- NOTE | 2018-12-26 21:32 | NUR ---
Increase Cardizem Drip to 15mg/HR as ordered by Dr Pritchett
[2018-12-26] MEDS ORDERED: ONDA4TAB5 PO (21:55)
--- NOTE | 2018-12-26 23:14 | NUR ---
Dr Pritchett speaking with Montez Gillespie DNP
--- NOTE | 2018-12-27 00:45 | NUR ---
Transfered to [facility] 3rd floor via [facility]
--- NOTE | 2018-12-27 00:46 | NUR ---
Transfered to 3rd floor Tele-TD with cardizem drip at 5mg/hr as ordered
--- NOTE | 2018-12-27 00:50 | NUR ---
Admitted patient from ER via [facility]. AAOx4. Routine admission care done. Plan of care initiated.
[2018-12-27 01:02] VITALS: BP 156/82
[2018-12-27] MEDS ORDERED: ACETAMINOPHEN 325 MG TABLET PO PRN (01:45)
[2018-12-27] MEDS ORDERED: ZOLPIDEM 5 MG TABLET PO PRN (01:45)
[2018-12-27] MEDS ORDERED: ONDANSETRON 4 MG/2 ML VIAL IV PRN (01:45)
[2018-12-27] MEDS ORDERED: HYDROCODONE/APAP 10-325 MG TABLET PO PRN (01:45)
[2018-12-27] MEDS ORDERED: TIZANIDINE HCL 4 MG TABLET PO PRN (01:45)
[2018-12-27] MEDS ORDERED: ONDANSETRON HCL 4 MG TABLET PO PRN (01:45)
[2018-12-27] MEDS ORDERED: Z GUARD REMEDY PASTE 57 GM TUBE TOP PRN (01:45)
[2018-12-27] MEDS ORDERED: CLONAZEPAM 1 MG TABLET PO PRN (01:45)
[2018-12-27] MEDS: MORPHINE SULFATE 4 MG/1 ML DISP.SYRIN IV PRN ×5 (02:00→21:27)
--- NOTE | 2018-12-27 02:00 | NUR ---
Still complaining of CP 04/13, medicated with Morphine 4 MG IVP as ordered and needed. Will monitor.
[2018-12-27 02:25] LABS: IRON, SERUM 23 ug/dL (50-175)
[2018-12-27 04:00] VITALS: BP 113/65
--- NOTE | 2018-12-27 06:11 | NUR ---
HR 137bpm while in the bathroom, now complaint of CP 04/13, Morphine given as ordered. Continue to monitor.
[2018-12-27 06:36] LABS: BASOPHILS % (AUTO) 0.6 % (0.0-2.0); EOSINOPHILS # (AUTO) 0.1 K/uL (0.0-0.7); EOSINOPHILS % (AUTO) 1.9 % (0.0-7.0); HEMATOCRIT 33.8 % (31.2-41.9); HEMOGLOBIN 10.6 g/dL (10.9-14.3); LYMPHOCYTES # (AUTO) 2.8 K/uL (20.0-40.0); LYMPHOCYTES % (AUTO) 38.1 % (20.5-51.5); MEAN CORPUSCULAR HEMOGLOBIN 23.2 uug (24.7-32.8); MEAN CORPUSCULAR HGB CONC 31 g/dL (32.3-35.6); MEAN CORPUSCULAR VOLUME 74.4 fL (75.5-95.3); MONOCYTES # (AUTO) 0.5 K/uL (2.0-10.0); MONOCYTES % (AUTO) 7.4 % (0.0-11.0); NEUTROPHILS # (AUTO) 3.7 K/uL (1.8-8.9); PLATELET COUNT (AUTO) 425 K/uL (179-408); RED BLOOD CELL COUNT(AUTO) 4.55 MIL/uL (3.63-4.92); WHITE BLOOD COUNT (AUTO) 7.2 K/uL (3.8-11.8)
[2018-12-27 06:47] LABS: CREATININE 0.9 mg/dL (0.6-1.3); MAGNESIUM 2.4 mg/dL (1.8-2.4); PHOSPHOROUS 4.1 mg/dL (2.5-4.9); POTASSIUM 3.8 mmol/L (3.5-5.1)
--- NOTE | 2018-12-27 07:50 | NUR ---
DENIES CHEST PAIN OR CHEST PRESSURES, SR ON MONITOR. CONTINUE WITH CARDIZEM DRIP WITH PARAMETERS. CLOSELY MONITORED
[2018-12-27] MEDS: ASPIRIN 81 MG TAB.CHEW PO SCH (08:14)
[2018-12-27] MEDS: AMITRIPTYLINE HCL 50 MG TABLET PO SCH ×2 (08:14→17:28)
[2018-12-27 08:17] VITALS: BP 124/65
[2018-12-27] MEDS ORDERED: RIVAROXABAN 15 MG TABLET PO SCH (09:00)
[2018-12-27 11:51] VITALS: BP 124/65
--- NOTE | 2018-12-27 12:45 | NUR ---
SEEN BY DR KEE FOR CARDIAC FOLLOW-UP SEE NOTES.
[2018-12-27] MEDS: METOPROLOL SUCCINATE XL 50 MG TAB.SR.24H PO SCH (14:42)
--- NOTE | 2018-12-27 15:31 | NUR ---
continue current tx plan as ordered, sr/st on monitor. continue with pain management
[2018-12-27 15:39] VITALS: BP 130/66
[2018-12-27] MEDS: DILTIAZEM HCL IV 125 MG in IV DEXTROSE 5% 100 ML IV PRN (17:50)
--- NOTE | 2018-12-27 19:00 | NUR ---
Received patient awake, tolerable chest pain in scale of 4/10 presented. Continue Cardizem drip 1:1 5cc/hour as ordered with HR 84bpm. Remain SR 1with 1st degree AV block. Refused O2 at this time, saturating 96% RA. Continue care as planned
[2018-12-27 20:00] VITALS: BP 116/56
--- NOTE | 2018-12-27 20:18 | NUR ---
Seen by Dr. Brandon today.
--- NOTE | 2018-12-27 21:30 | NUR ---
Complaint of left chest pain that radiates to her back, medicated as needed. Will monitor.
[2018-12-27] MEDS ORDERED: AMLO5TAB9 PO (21:39)
[2018-12-27] MEDS ORDERED: METO100T7 PO (21:39)
[2018-12-27] MEDS ORDERED: MULT-24 PO (21:40)
[2018-12-27] MEDS ORDERED: OMEG1CAP PO (21:41)
[2018-12-27] MEDS ORDERED: [UNRECOGNIZED DRUG - CODE] PO (21:44)
[2018-12-28] VITALS: BP 125/63
[2018-12-28 04:00] VITALS: BP 129/60
[2018-12-28] MEDS: MORPHINE SULFATE 4 MG/1 ML DISP.SYRIN IV PRN ×2 (04:07→08:50)
[2018-12-28 06:40] LABS: BASOPHILS # (AUTO) 0.1 K/uL (0.0-8.0); BASOPHILS % (AUTO) 0.6 % (0.0-2.0); EOSINOPHILS # (AUTO) 0.3 K/uL (0.0-0.7); EOSINOPHILS % (AUTO) 4.2 % (0.0-7.0); HEMATOCRIT 35.8 % (31.2-41.9); HEMOGLOBIN 11.1 g/dL (10.9-14.3); LYMPHOCYTES # (AUTO) 3.4 K/uL (20.0-40.0); LYMPHOCYTES % (AUTO) 41.4 % (20.5-51.5); MEAN CORPUSCULAR HEMOGLOBIN 23.3 uug (24.7-32.8); MEAN CORPUSCULAR HGB CONC 31 g/dL (32.3-35.6); MEAN CORPUSCULAR VOLUME 75.2 fL (75.5-95.3); MONOCYTES # (AUTO) 0.4 K/uL (2.0-10.0); MONOCYTES % (AUTO) 4.8 % (0.0-11.0); PLATELET COUNT (AUTO) 480 K/uL (179-408); RED BLOOD CELL COUNT(AUTO) 4.76 MIL/uL (3.63-4.92); WHITE BLOOD COUNT (AUTO) 8.2 K/uL (3.8-11.8)
[2018-12-28 06:59] LABS: BILIRUBIN,TOTAL 0.3 mg/dL (0.2-1.0); CREATININE 1.1 mg/dL (0.6-1.3); MAGNESIUM 2.1 mg/dL (1.8-2.4); PHOSPHOROUS 4.4 mg/dL (2.5-4.9); TOTAL PROTEIN, SERUM 8.5 g/dL (6.4-8.2)
[2018-12-28 08:02] VITALS: BP 127/51
--- NOTE | 2018-12-28 08:10 | NUR ---
Patient co chest pain that radiates down left arm, on scale 1-10=8, and notified Dr Soto, and awaiting orders. Elbert Greer RN
[2018-12-28] MEDS: ASPIRIN 81 MG TAB.CHEW PO SCH (08:51)
[2018-12-28] MEDS: AMITRIPTYLINE HCL 50 MG TABLET PO SCH (08:51)
[2018-12-28] MEDS: METOPROLOL SUCCINATE XL 50 MG TAB.SR.24H PO SCH (08:51)
[2018-12-28 08:59] LABS: THYROID STIMULATING HORMONE 3.162 mIU/mL (0.358-3.740)
--- NOTE | 2018-12-28 09:30 | NUR ---
Patient had EKG, and Dr Soto texted with result, and no orders written. Patient pain resolves 3-12/12. Elbert Greer RN
--- NOTE | 2018-12-28 10:20 | NUR ---
Dr Soto visits patient, updated on present condition, and speaks to Dr Youssef, and orders written. Elbert Greer RN
[2018-12-28 11:42] VITALS: BP 138/61
--- NOTE | 2018-12-28 12:30 | NUR ---
Patient visited by Charles updated on present condition, vs, and orders written. Elbert Greer RN
[2018-12-28 13:00] VITALS: BP 126/52
--- NOTE | 2018-12-28 14:10 | NUR ---
Patient given discharge instructions regarding follow up, diet, home medications, rx and activity level without restrictions. Patient gives verbal acknowledgement of understanding information received. Elbert Greer RN
--- NOTE | 2018-12-28 14:30 | NUR ---
Patient escorted to [facility], and discharged to home. Will be picked up and taken home with [facility]. Elbert Greer RN
[2018-12-28 14:45] VITALS: BP 108/63
[2018-12-29] MEDS ORDERED: NITR0.4T48 SL (18:55)
== END 2018-12-28 14:20 | disposition home or self-care (01) | DRG 201 ==
LOC: ER 18:47 → TELE3 12-27 00:34 → TELE-TD3 12-27 00:50
PROVIDERS: ADMIT Nurse Practitioner Acute Care
PROC: 3E033RZ Introduction of Antiarrhythmic into Peripheral Vein, Percutaneous Approach (ICD-10-PCS; principal; 2018-12-27)
DX: I47.1 Supraventricular tachycardia (principal); I47.2 Ventricular tachycardia; I25.2 Old myocardial infarction; I44.0 Atrioventricular block, first degree; M45.9 Ankylosing spondylitis of unspecified sites in spine; I44.7 Left bundle-branch block, unspecified; M19.90 Unspecified osteoarthritis, unspecified site; Z76.5 Malingerer [conscious simulation]; I10 Essential (primary) hypertension; L40.50 Arthropathic psoriasis, unspecified; Z79.82 Long term (current) use of aspirin; F41.8 Other specified anxiety disorders; Z79.899 Other long term (current) drug therapy; Z86.018 Personal history of other benign neoplasm
CPT/HCPCS: 36415; 70030-TC; 71045; 83550; 83735; 84100; 84443; 85025; 85730; 93005; A4663; G0378; J0153; J2270; J2405; J3490; J7060

== ENCOUNTER 2018-12-29 18:23 | Emergency (ER) | payer MEDICAID ==
[~2018-12-29] VITALS: Ht 170.2 cm; Wt 86.2 kg
[~2018-12-29 18:23] MED LIST changes: +AMLO5TAB9 PO; +METO100T7 PO; +MULT-24 PO; +OMEG1CAP PO; +ONDA4TAB5 PO; +[UNRECOGNIZED DRUG - CODE] PO
--- NOTE | 2018-12-29 18:45 | NUR ---
Dr. Figueroa here to see pt for MSE.
[2018-12-29] MEDS ORDERED: NITR0.4T48 SL (18:55)
[2018-12-29 19:08] LABS: BASOPHILS # (AUTO) 0.1 K/uL (0.0-8.0); BASOPHILS % (AUTO) 0.9 % (0.0-2.0); EOSINOPHILS # (AUTO) 0.2 K/uL (0.0-0.7); EOSINOPHILS % (AUTO) 2.6 % (0.0-7.0); HEMATOCRIT 33.2 % (31.2-41.9); HEMOGLOBIN 10.6 g/dL (10.9-14.3); LYMPHOCYTES # (AUTO) 2.5 K/uL (20.0-40.0); LYMPHOCYTES % (AUTO) 30.1 % (20.5-51.5); MEAN CORPUSCULAR HEMOGLOBIN 23.3 uug (24.7-32.8); MEAN CORPUSCULAR HGB CONC 32 g/dL (32.3-35.6); MEAN CORPUSCULAR VOLUME 73.1 fL (75.5-95.3); MONOCYTES # (AUTO) 0.7 K/uL (2.0-10.0); MONOCYTES % (AUTO) 8.2 % (0.0-11.0); NEUTROPHILS # (AUTO) 4.9 K/uL (1.8-8.9); NEUTROPHILS % (AUTO) 58.2 % (38.5-71.5); PLATELET COUNT (AUTO) 389 K/uL (179-408); RED BLOOD CELL COUNT(AUTO) 4.54 MIL/uL (3.63-4.92); WHITE BLOOD COUNT (AUTO) 8.4 K/uL (3.8-11.8)
--- NOTE | 2018-12-29 19:08 | NUR ---
Full SBAR report given to Ulises.
[2018-12-29 19:18] LABS: CREATININE 0.9 mg/dL (0.6-1.3); POTASSIUM 3.6 mmol/L (3.5-5.1)
[2018-12-29 19:30] LABS: BILIRUBIN,DIRECT 0.1 mg/dL (0.0-0.2); BILIRUBIN,TOTAL 0.3 mg/dL (0.2-1.0); TOTAL PROTEIN, SERUM 8.1 g/dL (6.4-8.2)
--- NOTE | 2018-12-29 21:04 | NUR ---
SBAR report given to Jody MARCUM via telephone.
--- NOTE | 2018-12-29 22:55 | NUR ---
Patient discharged to home in stable conditon. Written and verbal after care instructions given. Patient verbalizes understanding of instructions.
[2018-12-29 22:56] VITALS: BP 151/99
== END 2018-12-29 22:57 | disposition home or self-care (01) ==
LOC: ER 18:23
DX: R07.89 Other chest pain (principal); M54.9 Dorsalgia, unspecified; R42 Dizziness and giddiness; I10 Essential (primary) hypertension; Z88.1 Allergy status to other antibiotic agents; Z88.8 Allergy status to other drugs, medicaments and biological substances; Z79.82 Long term (current) use of aspirin; Z79.899 Other long term (current) drug therapy
CPT/HCPCS: 36415; 70030-TC; 71045; 85025; 85730; 93005; A4663

== ENCOUNTER 2019-01-20 20:38 | Emergency (ER) | payer MEDICAID ==
[~2019-01-20] VITALS: Ht 167.6 cm; Wt 86.2 kg
[~2019-01-20 20:38] MED LIST changes: -FAMO-132 PO; -HYDR50CA PO; -METO50TA16 PO; +NITR0.4T48 SL
[2019-01-20] MEDS ORDERED: IV NORMAL SALINE 1000 ML BAG IV ONE (21:00)
[2019-01-20 21:18] LABS: BASOPHILS # (AUTO) 0.1 K/uL (0.0-8.0); BASOPHILS % (AUTO) 1.1 % (0.0-2.0); CREATININE 1.3 mg/dL (0.6-1.3); EOSINOPHILS # (AUTO) 0.4 K/uL (0.0-0.7); EOSINOPHILS % (AUTO) 4.4 % (0.0-7.0); HEMATOCRIT 35.7 % (31.2-41.9); HEMOGLOBIN 11.6 g/dL (10.9-14.3); LYMPHOCYTES # (AUTO) 3.6 K/uL (20.0-40.0); LYMPHOCYTES % (AUTO) 35.9 % (20.5-51.5); MEAN CORPUSCULAR HEMOGLOBIN 23.6 uug (24.7-32.8); MEAN CORPUSCULAR HGB CONC 33 g/dL (32.3-35.6); MEAN CORPUSCULAR VOLUME 72.7 fL (75.5-95.3); MONOCYTES # (AUTO) 0.6 K/uL (2.0-10.0); MONOCYTES % (AUTO) 6.1 % (0.0-11.0); NEUTROPHILS # (AUTO) 5.3 K/uL (1.8-8.9); NEUTROPHILS % (AUTO) 52.5 % (38.5-71.5); PLATELET COUNT (AUTO) 568 K/uL (179-408); POTASSIUM 3.7 mmol/L (3.5-5.1); RED BLOOD CELL COUNT(AUTO) 4.91 MIL/uL (3.63-4.92); WHITE BLOOD COUNT (AUTO) 10.1 K/uL (3.8-11.8)
[2019-01-20 21:30] LABS: BILIRUBIN,DIRECT 0.1 mg/dL (0.0-0.2); BILIRUBIN,TOTAL 0.4 mg/dL (0.2-1.0); TOTAL PROTEIN, SERUM 9.1 g/dL (6.4-8.2)
[2019-01-20] MEDS ORDERED: MORPHINE SULFATE 4 MG/1 ML DISP.SYRIN ONE (21:42)
[2019-01-20] MEDS ORDERED: ONDANSETRON 4 MG/2 ML VIAL ONE (21:43)
[2019-01-20] MEDS ORDERED: ONDANSETRON 4 MG/2 ML VIAL IV ONE (21:45)
[2019-01-20] MEDS ORDERED: MORPHINE SULFATE 4 MG/1 ML DISP.SYRIN IV ONE (21:45)
[2019-01-20 22:27] VITALS: BP 142/65
== END 2019-01-20 22:17 | disposition home or self-care (01) ==
LOC: ER 20:40
DX: R07.89 Other chest pain (principal); J98.11 Atelectasis; I10 Essential (primary) hypertension; Z88.1 Allergy status to other antibiotic agents; Z88.8 Allergy status to other drugs, medicaments and biological substances; Z88.5 Allergy status to narcotic agent; Z79.82 Long term (current) use of aspirin; Z79.899 Other long term (current) drug therapy
CPT/HCPCS: 36415; 71045; 80048; 80076; 83880; 84484; 85025; 85730; 93005; 96374; 96375; 99284; J2270; J2405; 70030-TC; A4663

== ENCOUNTER 2019-05-20 15:33 | Emergency (ER) | payer MEDICAID ==
[~2019-05-20] VITALS: Ht 167.6 cm; Wt 85.7 kg
[~2019-05-20 15:33] MED LIST changes: -TIZA4TAB4 PO; +TIZA4TAB5 PO
[2019-05-20] MEDS ORDERED: KETOROLAC TROMETHAMINE 30 MG INJ IVP ONE (16:00)
[2019-05-20] MEDS ORDERED: ONDANSETRON 4 MG/2 ML VIAL IV ONE (16:00)
[2019-05-20] MEDS ORDERED: IV NORMAL SALINE 1000 ML BAG IV ONE (16:00)
[2019-05-20] MEDS ORDERED: diphenhydrAMINE 50 MG/1 ML VIAL IV ONE (16:00)
[2019-05-20] MEDS ORDERED: diphenhydrAMINE 50 MG/1 ML VIAL ONE (16:04)
[2019-05-20] MEDS ORDERED: ONDANSETRON 4 MG/2 ML VIAL ONE (16:05)
[2019-05-20] MEDS ORDERED: KETOROLAC TROMETHAMINE 30 MG INJ ONE (16:05)
--- NOTE | 2019-05-20 16:37 | NUR ---
Pt states she "feels much better", pain 410 now.
--- NOTE | 2019-05-20 17:00 | NUR ---
Patient discharged to home in stable conditon. Written and verbal after care instructions given. Patient verbalizes understanding of instructions.
--- NOTE | 2019-05-20 17:00 | NUR ---
IV removed. Catheter intact and site benign. Pressure and 4x4 gauze applied to site. No bleeding noted.
[2019-05-20 17:01] VITALS: BP 112/67
== END 2019-05-20 17:01 | disposition home or self-care (01) ==
LOC: ER 15:33
DX: G43.009 Migraine without aura, not intractable, without status migrainosus (principal); Z79.899 Other long term (current) drug therapy; I10 Essential (primary) hypertension; F32.9 Major depressive disorder, single episode, unspecified; Z88.1 Allergy status to other antibiotic agents; Z88.5 Allergy status to narcotic agent; Z88.8 Allergy status to other drugs, medicaments and biological substances; Z79.82 Long term (current) use of aspirin; R11.2 Nausea with vomiting, unspecified
CPT/HCPCS: 96361; 96374; 96375; 99283; J1200; J1885; J2405; A4663; J7030

== ENCOUNTER 2019-05-21 11:53 | Emergency (ER) | payer MEDICAID ==
[~2019-05-21] VITALS: Ht 167.6 cm; Wt 85.7 kg
--- NOTE | 2019-05-21 12:28 | NUR ---
Pt.was seen by with new orders.
[2019-05-21] MEDS ORDERED: IV NORMAL SALINE 1000 ML BAG IV ONE (12:30)
[2019-05-21] MEDS ORDERED: VALPROIC ACID 250 MG CAPSULE PO ONE (12:30)
[2019-05-21] MEDS ORDERED: VALPROIC ACID 250 MG CAPSULE PO SCH (12:30)
[2019-05-21] MEDS ORDERED: KETOROLAC TROMETHAMINE 30 MG INJ IVP ONE (12:30)
[2019-05-21] MEDS ORDERED: diphenhydrAMINE 50 MG/1 ML VIAL IV ONE (12:30)
[2019-05-21] MEDS ORDERED: SERTRALINE HCL 50 MG TABLET PO ONE (12:30)
[2019-05-21] MEDS ORDERED: PROCHLORPERAZINE EDISYLATE 10 MG/2 ML VIAL IV ONE (12:30)
[2019-05-21] MEDS ORDERED: VALACYCLOVIR HCL 500 MG TABLET ONE (13:11)
[2019-05-21] MEDS ORDERED: SERTRALINE HCL 50 MG TABLET ONE (13:11)
--- NOTE | 2019-05-21 13:27 | NUR ---
Pt. resting,saing that her pain almost gone,denies any nausea.
[2019-05-21 13:58] VITALS: BP 138/78
== END 2019-05-21 14:40 | disposition home or self-care (01) ==
LOC: ER 11:53
DX: G43.909 Migraine, unspecified, not intractable, without status migrainosus (principal); Z76.0 Encounter for issue of repeat prescription; Z88.8 Allergy status to other drugs, medicaments and biological substances; Z88.1 Allergy status to other antibiotic agents; Z88.5 Allergy status to narcotic agent; Z79.82 Long term (current) use of aspirin; Z79.899 Other long term (current) drug therapy
CPT/HCPCS: 96374; 96375; 99283; J0780; J1200; J1885; A4663; J7030

== ENCOUNTER 2019-06-08 15:59 | Emergency (ER) | payer MEDICAID ==
[~2019-06-08] VITALS: Ht 167.6 cm; Wt 83.9 kg
--- NOTE | 2019-06-08 16:22 | NUR ---
Dr Oneil is at bedside doing the MSE.
[2019-06-08] MEDS ORDERED: MORPHINE SULFATE 2 MG/1 ML DISP.SYRIN IV ONE ×2 (16:30→20:30)
[2019-06-08] MEDS ORDERED: ONDANSETRON 4 MG/2 ML VIAL IV ONE ×2 (16:30→20:30)
[2019-06-08] MEDS ORDERED: IV NS 1000 ML 1,000 ML IV ONE (16:30)
[2019-06-08] MEDS ORDERED: DEXAMETHASONE SOD PHOSPHATE 4 MG INJ IV ONE (16:30)
[2019-06-08] MEDS ORDERED: diphenhydrAMINE 50 MG/1 ML VIAL IV ONE (16:30)
[2019-06-08] MEDS ORDERED: diphenhydrAMINE 50 MG/1 ML VIAL ONE (16:37)
[2019-06-08] MEDS ORDERED: ONDANSETRON 4 MG/2 ML VIAL ONE ×2 (16:37→21:13)
[2019-06-08] MEDS ORDERED: DEXAMETHASONE SOD PHOSPHATE 10 MG INJ ONE (16:37)
[2019-06-08] MEDS ORDERED: MORPHINE SULFATE 2 MG/1 ML DISP.SYRIN ONE ×2 (16:38→21:13)
--- NOTE | 2019-06-08 17:26 | NUR ---
Patient is resting comfortably on gurney with eyes closed, NAD.
--- NOTE | 2019-06-08 18:13 | NUR ---
Patient ambulated to bathroom with slow setady gait. Patient said that she usually takes [employer] to go home, pending disposition.
--- NOTE | 2019-06-08 18:25 | NUR ---
Patient said her headaches are still there, MD notified.
[2019-06-08] MEDS ORDERED: KETAMINE HCL 500 MG/10 ML INJ IV ONE (18:30)
--- NOTE | 2019-06-08 18:30 | NUR ---
Patient wants more pain medicine for her headaches, MD is aware.
[2019-06-08] MEDS ORDERED: KETOROLAC TROMETHAMINE 30 MG INJ IVP ONE (20:15)
[2019-06-08] MEDS ORDERED: KETOROLAC TROMETHAMINE 30 MG INJ ONE (20:20)
[2019-06-08 20:48] LABS: BASOPHILS % (AUTO) 0.9 % (0.0-2.0); EOSINOPHILS % (AUTO) 0.3 % (0.0-7.0); HEMATOCRIT 34.6 % (31.2-41.9); HEMOGLOBIN 11.1 g/dL (10.9-14.3); LYMPHOCYTES # (AUTO) 0.8 K/uL (20.0-40.0); LYMPHOCYTES % (AUTO) 18.7 % (20.5-51.5); MEAN CORPUSCULAR HEMOGLOBIN 23.8 uug (24.7-32.8); MEAN CORPUSCULAR HGB CONC 32 g/dL (32.3-35.6); MEAN CORPUSCULAR VOLUME 74.4 fL (75.5-95.3); MONOCYTES # (AUTO) 0.1 K/uL (2.0-10.0); MONOCYTES % (AUTO) 1.5 % (0.0-11.0); NEUTROPHILS # (AUTO) 3.3 K/uL (1.8-8.9); NEUTROPHILS % (AUTO) 78.6 % (38.5-71.5); PLATELET COUNT (AUTO) 481 K/uL (179-408); RED BLOOD CELL COUNT(AUTO) 4.65 MIL/uL (3.63-4.92); WHITE BLOOD COUNT (AUTO) 4.3 K/uL (3.8-11.8)
[2019-06-08 21:02] LABS: CARBON DIOXIDE 26 mmol/L (21-32); CHLORIDE 108 mmol/L (98-107); CREATININE 1.1 mg/dL (0.6-1.3); GLUCOSE 114 mg/dL (74-106); POTASSIUM 4.3 mmol/L (3.5-5.1); UREA NITROGEN, BLOOD 16 mg/dL (7-18)
[2019-06-08 21:12] LABS: ALANINE AMINOTRANSFERASE 35 U/L (14-59); ALKALINE PHOSPHATASE 127 U/L (50-136); ASPARTATE AMINOTRANSFERASE 15 U/L (15-37); BILIRUBIN,DIRECT < 0.1 mg/dL (0.0-0.2); BILIRUBIN,TOTAL 0.1 mg/dL (0.2-1.0); TOTAL PROTEIN, SERUM 8.2 g/dL (6.4-8.2)
--- NOTE | 2019-06-08 22:11 | NUR ---
Patient discharged to home in stable conditon. Written and verbal after care instructions given. Patient verbalizes understanding of instructions. Pt ambulated out of ER with steady gait, no acute signs of distress, VSS, all belongings taken, IV site discontinued.
[2019-06-08 22:12] VITALS: BP 156/70
[2019-06-09] MEDS ORDERED: INFLECTRA (16:04)
[2019-06-09] MEDS ORDERED: DIVA-76 PO (16:04)
[2019-06-09] MEDS ORDERED: DILT30TA35 PO (16:04)
[2019-06-09] MEDS ORDERED: PANT40TA4 PO (16:04)
[2019-06-09] MEDS ORDERED: PREDNISOLONE (16:04)
[2019-06-09] MEDS ORDERED: METH2.5T PO (16:04)
[2019-06-09] MEDS ORDERED: SERT50TA12 PO (16:04)
[2019-06-09] MEDS ORDERED: METO50TA16 PO (16:04)
== END 2019-06-08 22:12 | disposition home or self-care (01) ==
LOC: ER 15:59
DX: G43.909 Migraine, unspecified, not intractable, without status migrainosus (principal); F32.9 Major depressive disorder, single episode, unspecified; F41.9 Anxiety disorder, unspecified; I10 Essential (primary) hypertension; Z88.1 Allergy status to other antibiotic agents; Z88.5 Allergy status to narcotic agent; Z88.8 Allergy status to other drugs, medicaments and biological substances; Z79.82 Long term (current) use of aspirin; Z79.899 Other long term (current) drug therapy
CPT/HCPCS: 36415; 70450; 80048; 80076; 85025; 96374; 96375; 96376; 99284; J1100; J1200; J1885; J2270 ×2; J2405 ×2; A4663; J7030

== ENCOUNTER 2019-06-09 15:28 | Emergency (ER) | payer MEDICAID ==
[~2019-06-09] VITALS: Ht 167.6 cm; Wt 83.5 kg
[2019-06-09] MEDS ORDERED: DIVA-76 PO (16:04)
[2019-06-09] MEDS ORDERED: PREDNISOLONE (16:04)
[2019-06-09] MEDS ORDERED: PANT40TA4 PO (16:04)
[2019-06-09] MEDS ORDERED: METH2.5T PO (16:04)
[2019-06-09] MEDS ORDERED: METO50TA16 PO (16:04)
[2019-06-09] MEDS ORDERED: SERT50TA12 PO (16:04)
[2019-06-09] MEDS ORDERED: DILT30TA35 PO (16:04)
[2019-06-09] MEDS ORDERED: INFLECTRA (16:04)
[2019-06-09] MEDS: MORPHINE SULFATE 4 MG/1 ML DISP.SYRIN IM ONE (17:52)
[2019-06-09] MEDS ORDERED: ONDANSETRON 4 MG/2 ML VIAL ONE (17:53)
[2019-06-09] MEDS ORDERED: MORPHINE SULFATE 4 MG/1 ML DISP.SYRIN ONE ×2 (17:53→20:19)
[2019-06-09] MEDS: ONDANSETRON 4 MG/2 ML VIAL IM ONE (17:53)
--- NOTE | 2019-06-09 18:24 | NUR ---
Patient is resting comfortably in bed with eyes closed, NAD noted.
--- NOTE | 2019-06-09 19:05 | NUR ---
received report from Cherie MARCUM.
[2019-06-09] MEDS: MORPHINE SULFATE 4 MG/1 ML DISP.SYRIN IV ONE (20:48)
--- NOTE | 2019-06-09 20:59 | NUR ---
Dr. Pritchett speaking with Dr. Noel of [place].
[2019-06-09] MEDS: diphenhydrAMINE 50 MG/1 ML VIAL IV ONE (21:21)
[2019-06-09] MEDS ORDERED: diphenhydrAMINE 25 MG CAP PO ONE (21:24)
[2019-06-09] MEDS ORDERED: diphenhydrAMINE 50 MG/1 ML VIAL ONE (21:25)
--- NOTE | 2019-06-09 21:45 | NUR ---
HUSSAIN FROM [facility] CALLED BACK WITH TRANSFER INFO. PATIENT WILL BE GOING TO [facility] ROOM [address]. PHONE NUMBER FOR REPORT IS .
--- NOTE | 2019-06-09 21:51 | NUR ---
Spoke to Jody alcantara Ephesus, given ETA [id number].
--- NOTE | 2019-06-09 22:01 | NUR ---
report given to Kaitlin Garcia at receiving facility.
--- NOTE | 2019-06-09 23:09 | NUR ---
ambulance here to transfer patient to receiving facility
--- NOTE | 2019-06-09 23:12 | NUR ---
Patient discharged to home in stable conditon. Written and verbal after care instructions given. Patient verbalizes understanding of instructions. patient taken by [facility] and transferred to [facility]. patient in stable condition. VSS. patient alert and oriented. patient aware of transfer.
== END 2019-06-09 23:12 | disposition short-term general hospital (02) ==
LOC: ER 15:28
DX: G43.909 Migraine, unspecified, not intractable, without status migrainosus (principal); J44.9 Chronic obstructive pulmonary disease, unspecified; F32.9 Major depressive disorder, single episode, unspecified; F41.9 Anxiety disorder, unspecified; Z79.899 Other long term (current) drug therapy; Z88.1 Allergy status to other antibiotic agents; Z88.8 Allergy status to other drugs, medicaments and biological substances; Z79.82 Long term (current) use of aspirin
CPT/HCPCS: 96372 ×2; 96374; 96375; 99285; J1200; J2270 ×2; J2405; A4663; Q0163